=== PATIENT | female | born 1960 | race Caucasian/White ===

== ENCOUNTER → 2016-05-29 | Outpatient (CLI) | payer BC ==
[~2016-05-29] MED LIST: CIPRO PO; LEVOTHYROXINE88 MCG PO; METFORMIN HCL850 MG PO; METFORMIN PO; NORCO 5/325 TAB1 TAB PO; VOLTAREN75 MG PO
--- NOTE | ~2016-05-29 | US98 ---
[facility] A Service [facility] RADIOLOGY TEXT RESULTS PATIENT: DANII GOODSON LOCATION: [facility] : 64 UNIT #: [id number] AGE: [address]: Rico Soto MD SEX: F ORDER DR: [id number] [place] [id number] O MR#: [id number] Acc #: [id number] NAME: DANII GOODSON : 1960 SEX: F STUDY DATE/TIME: 05/29/2016 13:17 UNIT: SGUS ROOM: STUDY DESCRIPTION: US Pelvic Non-OB Complete Attending Physician: Rico Soto M.D. Referring Physician: Rico Soto M.D. Ordering Physician: Rico Soto M.D. Primary Care Physician: Rico Soto M.D. MEDICAL IMAGING REPORT This report is preliminary unless electronic signature is present. EXAM Pelvic sonogram HISTORY Right lower quadrant pain intermittently for 2 years. Previous hysterectomy 25 years ago. FINDINGS Longitudinal and transverse sonograms of the pelvis were obtained. Patient was examined transabdominally and transvaginally. The uterus has been removed. The adnexa is unremarkable. The bladder appears sonographically normal. No pelvic masses or fluid collections are seen. CONCLUSION Status post hysterectomy and bilateral salpingo-oophorectomy. Unremarkable pelvis. Dictated by... Jerome Plata M.D. THIS IS AN ELECTRONICALLY VERIFIED REPORT Jerome Plata M.D. at 06/02/2016 5:10 PM GARY/chad TD: 05/30/2016 06:57 JOB #: [id number] MEDICAL IMAGING REPORT [facility] A [facility] RADIOLOGY TEXT RESULTS PATIENT: DANII GOODSON LOCATION: [facility] : 64 UNIT #: [id number] AGE: [address]: Rico Soto MD SEX: F ORDER DR: Page 1 of 1
== END | disposition home or self-care (01) ==
LOC: SGUS 12:59
DX: R10.31 Right lower quadrant pain (principal); R10.2 Pelvic and perineal pain; Z90.710 Acquired absence of both cervix and uterus; Z90.722 Acquired absence of ovaries, bilateral
CPT/HCPCS: 76830; 76856

== ENCOUNTER → 2016-09-17 | Outpatient (CLI) | payer BC ==
--- NOTE | ~2016-09-17 | ST ---
Unit #: [id number] #: [id number] Patient: DANII GOODSON [id number] [address] [address] [id number] O MR#: [id number] NAME: DANII GOODSON. : 1960 SEX: F STUDY DATE/TIME: 09/17/2016 UNIT: CE ROOM: STUDY DESCRIPTION: Attending Physician: Rico Soto M.D. Primary Care Physician: Rico Soto M.D. CARDIOLOGY REPORT EXAM Stress ECG. INDICATIONS Dyspnea, chest discomfort. SUMMARY Patient exercised on a Alcides protocol to maximal effort. The patient's resting heart rate was 74 beats per minute. The patient's heart rate increased to 142 beats per minute at peak exercise, 7 minutes 48 seconds. The rest and stress ECG showed no diagnostic ST shifts. No significant dysrhythmias and no heart block. The resting blood pressure was 110/78, peak blood pressure 150/74. The patient experienced shortness of breath but no chest pain. IMPRESSION 1. Stress ECG showed no ischemia. 2. Mild deconditioning based on the patient's age. 3. Normal heart rate and blood pressure responses. Dictated by... Hayden Decker/jeffery TD: 09/17/2016 09:56 JOB #: [id number] CARDIOLOGY REPORT Page 1 of 1 X Jose Zee MD CARDIOLOGY REPORT
== END | disposition home or self-care (01) ==
LOC: CNUC 07:45 → CEKG 07:45 → CNUC 08:00
DX: R07.89 Other chest pain (principal); E03.9 Hypothyroidism, unspecified; E11.9 Type 2 diabetes mellitus without complications; E78.5 Hyperlipidemia, unspecified; F17.200 Nicotine dependence, unspecified, uncomplicated
CPT/HCPCS: 93017